=== PATIENT | male | born 2000 | race Caucasian/White ===

== ENCOUNTER 2021-07-12 10:29 | Emergency (ER) | payer MEDICAID ==
[2021-07-12] MEDS ORDERED: Ketorolac Tromethamine 30 MG/ML VIAL ONE (11:38)
[2021-07-12] MEDS ORDERED: HYDROcodone/Acetaminophen 5/325 mg Tablet ONE (11:38)
[2021-07-12] MEDS ORDERED: Cephalexin 500 MG CAP ONE (11:38)
== END 2021-07-12 12:00 | disposition home or self-care (01) ==
LOC: MADERS 10:29
DX: S83.412A Sprain of medial collateral ligament of left knee, initial encounter (principal); L03.115 Cellulitis of right lower limb; X50.9XXA Other and unspecified overexertion or strenuous movements or postures, initial encounter
CPT/HCPCS: 96374; J1885